=== PATIENT | female | born 1950 | race Caucasian/White ===

== ENCOUNTER 2025-03-04 12:13 | Inpatient (IN) | payer MEDICARE, SELFPAY ==
[2025-03-04] VITALS (21 sets, daily range): BP systolic 150–231; BP diastolic 70–120; PULSE 93–126; RESP 17–40; TEMP 35.9–37.2; O2SAT 85–98; BMI 27.1
--- NOTE | 2025-03-04 12:32 | DI.RAD.S_ITS ---
PROCEDURE: XR CHEST 1V INDICATIONS: shortness of breath, dyspnea TECHNIQUE: One view of the chest was acquired. COMPARISON: None. FINDINGS: Surgical changes and devices: None. Lungs and pleura: Lungs are clear. No pleural effusions or pneumothorax. Mediastinum: Mediastinal contours appear normal. Heart size is normal. Bones and chest wall: No suspicious bony lesions. Overlying soft tissues appear unremarkable. IMPRESSION: No acute cardiopulmonary abnormality is seen. Dictated by: Eric Pelayo M.D. on 03/04/2025 at 12:04 Approved by: Eric Pelayo M.D. on 03/04/2025 at 12:04
--- NOTE | 2025-03-04 12:33 | ED.SOB ---
HPI - SOB/Dyspnea General Chief Complaint: Shortness of Breath/Dyspnea Stated Complaint: sob Time Seen by Provider: 03/04/25 12:25 Source: patient Mode of arrival: Ambulatory Limitations: no limitations History of Present Illness HPI Narrative: This is a 74-year-old female with history asthma who got back from [place] a week ago presents with increasing shortness of breath and a nonproductive cough. Upon entering room the patient has audible wheezing. Patient is able to speak in full sentences patient denied any orthopnea or pedal edema patient says she did have an episode of substernal chest pressure while in [place]. There is no fevers no chills in the emergency room patient is able to speak in full sentence but appears to be in mild respiratory distress. Related Data Home Medications ?Medication ?Instructions ?Recorded ?Confirmed [STATIN] ##0 04/09/08 [THYROID MED] ##0 04/09/08 Allergies Allergy/AdvReac Type Severity Reaction Status Date / Time Penicillins Allergy Verified 03/04/25 12:27 Review of Systems Review of Systems ROS Unobtainable: Unobtainable due to medical condition Patient History Social History Smoking Status: Former smoker Smoking Status: Former smoker Exam Narrative Exam Narrative: GENERAL: [] year old patient appears stated age. Well-developed patient, in mild distress. HEAD: Atraumatic. Normocephalic. EYES: Pupils equal round and reactive. Extraocular motions intact. No scleral icterus. No injection or drainage. ENT: Nose without bleeding, purulent drainage. Throat without erythema, tonsillar hypertrophy or exudate. Airway patent. NECK: Trachea midline. Non tender CARDIOVASCULAR: Regular rate and rhythm without murmurs, gallops, or rubs. RESPIRATORY: Patient with audible wheezes mild respiratory distress GASTROINTESTINAL: Abdomen soft, non-tender, nondistended. EXTREMITIES: No edema or joint tenderness. BACK: Nontender without deformity or crepitance. No flank tenderness. NEURO: AOx3. SKIN: No rash or erythema of visible areas Initial Vital Signs Initial Vital Signs: Vital Signs Pulse Rate 126 H 03/04/25 12:18 Respiratory Rate 35 H 03/04/25 12:18 Blood Pressure 231/120 H 03/04/25 12:18 Pulse Oximetry 93 03/04/25 12:18 Course Orders Ordered: ED Orders 03/04/25 12:20 Complete Blood Count AUTO DIFF Stat Comprehensive Metabolic Panel Stat Covid-19 + FLU A/B + RSV - PCR Stat D Dimer Stat Lactate (Lactic Acid) Stat Magnesium Stat NT-proBNP (BNP-Adult 18+) Stat PTT Partial Thromboplastin Jose Stat Procalcitonin Stat Prothrombin Time INR Stat Troponin I Stat 03/04/25 12:31 Arterial Blood Gas STAT EKG-12 Lead Stat RT Consult Eval and Treat NOW 03/04/25 12:32 XR chest 1V Stat 03/04/25 13:16 CT angio chest PE protocol Stat 03/04/25 13:20 Blood Culture Stat 03/04/25 14:38 ABG [Arterial Blood Gas] STAT Magnesium Sulfate (Magnesium Sulfate) 4 gm in 100 mls @ 25 mls/hr IV NOW ONE Stop: 03/04/25 16:52 Last Admin: 03/04/25 13:02 Dose: 25 mls/hr Documented By: TEJA Co-signed By: DIANA Levofloxacin (Levaquin) 500 mg in 100 mls @ 100 mls/hr IV NOW ONE Stop: 03/04/25 16:58 Discontinued Medications Albuterol (Albuterol 2.5 Mg/3 Ml Neb (Adult)) 2.5 mg INH NOW ONE Stop: 03/04/25 14:15 Last Admin: 03/04/25 14:16 Dose: 2.5 mg Documented By: SYDNI Albuterol/Ipratropium (Albuterol/Ipratropium 3 Ml Ampul) 3 ml INH NOW ONE Stop: 03/04/25 12:32 Last Admin: 03/04/25 12:35 Dose: 3 ml Documented By: PRUDENCIO Albuterol/Ipratropium (Albuterol/Ipratropium 3 Ml Ampul) 3 ml INH NOW ONE Stop: 03/04/25 16:00 Dexamethasone (Dexamethasone 10 Mg/Ml Vial) 10 mg IV NOW ONE Stop: 03/04/25 12:32 Last Admin: 03/04/25 12:48 Dose: 10 mg Documented By: TEJA Sodium Chloride (Normal Saline 0.9%) 1,000 mls @ 999 mls/hr IV BOLUS ONE Stop: 03/04/25 13:31 Last Infusion: 03/04/25 14:02 Dose: Infused Documented By: Admin: 03/04/25 12:48 Dose: 999 mls/hr Documented By: TEJA Vital Signs Vital signs: Vital Signs - 8 hr 03/04/25 12:18 03/04/25 12:18 03/04/25 12:19 Temperature Pulse Rate 126 H 115 H Respiratory Rate 35 H 30 H Blood Pressure 231/120 H Pulse Oximetry 93 96 Oxygen Delivery Method Oxygen Flow Rate 03/04/25 12:19 03/04/25 12:24 03/04/25 12:30 Temperature 98.9 F Pulse Rate 126 H 108 H Respiratory Rate 40 H 29 H Blood Pressure 212/104 H 212/104 H Pulse Oximetry 93 94 Oxygen Delivery Method Room Air Oxygen Flow Rate 03/04/25 12:30 03/04/25 13:00 03/04/25 13:06 Temperature Pulse Rate 112 H Respiratory Rate 25 H Blood Pressure 184/86 H 205/90 H Pulse Oximetry 96 Oxygen Delivery Method Oxygen Flow Rate 03/04/25 13:06 03/04/25 13:30 03/04/25 14:00 Temperature Pulse Rate 111 H 107 H 108 H Respiratory Rate 30 H Blood Pressure Pulse Oximetry 94 96 94 Oxygen Delivery Method Oxygen Flow Rate 03/04/25 14:04 03/04/25 14:04 03/04/25 14:20 Temperature Pulse Rate 106 H Respiratory Rate 30 H Blood Pressure 215/106 H Pulse Oximetry 93 85 L Oxygen Delivery Method Room Air Oxygen Flow Rate 03/04/25 14:25 03/04/25 14:30 03/04/25 14:30 Temperature Pulse Rate 107 H Respiratory Rate Blood Pressure 189/92 H Pulse Oximetry 96 95 Oxygen Delivery Method Room Air Oxygen Flow Rate 1 03/04/25 15:00 03/04/25 15:00 Temperature Pulse Rate 104 H Respiratory Rate 21 Blood Pressure 194/100 H Pulse Oximetry 96 Oxygen Delivery Method Oxygen Flow Rate MDM - SOB/Dyspnea Lab Data 03/04/25 12:20 03/04/25 12:20 Labs: Lab Results 03/04/25 03/04/25 Range/Units 12:20 13:18 WBC 12.1 H (4.5-11.0) X10^3/uL RBC 4.04 (4.0-5.2) X10^6/uL Hgb 13.3 (12.0-16.0) g/dL Hct 37.5 (36-46) % MCV 92.9 (80-100) fL MCH 32.9 (26-34) PG MCHC 35.4 (30-36) % RDW 12.9 (11.6-14.8) % Plt Count 310 (150-400) X10^3/uL Neut % (Auto) 75.7 H (50-75) % Lymph % (Auto) 8.8 L (25-40) % [place] % (Auto) 10.3 (3-14) % Eos % (Auto) 4.5 H (2-4) % Baso % (Auto) 0.7 (0-2) % Neut # (Auto) 9200 H (0687-6537) /uL Lymph # (Auto) 1100 (4780-6847) /uL [place] # (Auto) 1200 H (0-900) /uL Eos # (Auto) 600 H (0-450) /uL Baso # (Auto) 100 (0-100) /uL PT 10.8 (9.4-12.5) SECONDS INR 1.0 (0.9-1.3) APTT 31 (25.1-36.5) SECONDS D-Dimer 264 (<500) ng/ml ABG Sample Site Right radial ABG pH 7.41 (7.35-7.45) ABG pCO2 34.7 L (35-45) mmHg ABG pO2 65 L (80-100) mmHg ABG HCO3 22 L (23-27) mmol/L ABG Total CO2 21 L (23-27) mmol/L ABG O2 Saturation 93 L (95-100) % ABG Base Excess -2.2 L (-2-3) mmol/L [place] Test Yes, passed VBG pH Cancelled VBG pCO2 Cancelled VBG pO2 Cancelled VBG HCO3 Cancelled VBG Total CO2 Cancelled VBG O2 Saturation Cancelled VBG Base Excess Cancelled FiO2 % Cancelled Sodium 119 L* (137-145) mmol/L Potassium 3.6 (3.4-5.1) mmol/L Chloride 85 L (98-107) mmol/L Carbon Dioxide 23 (22-32) mmol/L BUN 9 (7-17) mg/dL Creatinine 0.56 (0.52-1.04) mg/dL Estimated GFR > 60 (>60) mL/min BUN/Creatinine Ratio 16.1 (6-22) Glucose 117 H (70-99) mg/dL Lactate 1.0 (0.7-2.1) mmol/L Calcium 9.0 (8.4-10.2) mg/dL Magnesium 1.3 L (1.6-2.3) mg/dL Total Bilirubin 0.9 (0.2-1.3) mg/dL AST 50 H (14-36) IU/L ALT 26 (<35) IU/L Alkaline Phosphatase 83 (38-126) U/L Troponin I < 0.012 (0.01-0.034) ng/mL NT-Pro-B Natriuret Pep 641 H (<450) pg/mL Total Protein 8.0 (6.3-8.2) g/dL Albumin 4.9 (3.5-5.0) g/dL Globulin 3.1 (1.7-4.1) g/dL Albumin/Globulin Ratio 1.6 (1.0-2.8) Procalcitonin 0.054 (<0.5) ng/mL SARS-CoV-2 (PCR) Negative (Negative) Influenza A (RT-PCR) Flu a negative (NEGATIVE) Influenza B (RT-PCR) Flu b negative (NEGATIVE) RSV (PCR) Negative (Negative) MDM Narrative Medical decision making narrative: Patient had a 12 lead EKG reveals sinus tachycardia 116 beats per minute normal axis no blocks nonspecific STT wave changes patient had chest x-ray read by the radiologist negative patient's CTA of the chest read by the radiologist as negative for pulmonary embolism however a revealed multifocal pneumonia of both lungs. Patient's arterial blood gas on 1 L which revealed respiratory alkalosis with hypoxemia. Patient had a CBC unremarkable white count 12.1 chemistry was unremarkable magnesium was low at 1.3 lactic acid normal D-dimer was negative BNP was 641 troponin was negative. In the emergency room patient initially received a DuoNeb treatment as well as IV dexamethasone. When I got the magnesium level I ordered 4 g of IV magnesium on the patient. When I get back the results to the CT I ordered another DuoNeb as well as IV levofloxacin. Patient has multifocal pneumonia she has not been hospitalized recently she does not meet sepsis criteria and that is why I did not add the vancomycin at this point however the patient is hypomagnesemic she is still hypoxic and she still has not broken so I feel the patient should be admitted for further evaluation and treatment I will speak to the hospitalist to admit the patient differential diagnosis PE pneumonia CHF Discharge Plan Departure Patient Disposition: Admitted As Inpatient Clinical Impression: Multifocal pneumonia, Hypomagnesemia
[2025-03-04] MEDS: ALBUTEROL/IPRATROPIUM 3 ML AMPUL INH ×2 (12:35→16:19)
[2025-03-04 12:38] LABS: Add Manual Diff / Slide Review NO; Hematocrit 37.5 % (36-46); Hemoglobin 13.3 g/dL (12.0-16.0); Lymphocytes Absolute Auto 1100 /uL (1100-4500); Mean Corpuscular HGB Conc 35.4 % (30-36); Mean Corpuscular Hemoglobin 32.9 PG (26-34); Mean Corpuscular Volume 92.9 fL (80-100); Platelet Count 310 X10^3/uL (150-400)
[2025-03-04 12:41] LABS: INR 1.0 (0.9-1.3); Prothrombin Time 10.8 SECONDS (9.4-12.5)
[2025-03-04 12:43] LABS: PTT Partial Thromboplastin Tim 31 SECONDS (25.1-36.5)
[2025-03-04 12:45] LABS: Lactate (Lactic Acid) 1.0 mmol/L (0.7-2.1)
[2025-03-04 12:46] LABS: Magnesium 1.3 mg/dL (1.6-2.3)
[2025-03-04 12:47] LABS: Alanine Aminotransferase 26 IU/L (<35); Albumin 4.9 g/dL (3.5-5.0); Albumin Globulin Ratio 1.6 (1.0-2.8); Alkaline Phosphatase 83 U/L (38-126); Blood Urea Nitrogen 9 mg/dL (7-17); Calcium 9.0 mg/dL (8.4-10.2); Carbon Dioxide 23 mmol/L (22-32); Chloride 85 mmol/L (98-107); Estimated Glomerular Filt Rate > 60 mL/min (>60); Globulin 3.1 g/dL (1.7-4.1); Glucose 117 mg/dL (70-99); Potassium 3.6 mmol/L (3.4-5.1); Sodium 119 mmol/L (137-145); Total Protein 8.0 g/dL (6.3-8.2)
[2025-03-04] MEDS: SODIUM CHLORIDE 0.9% 1,000 ML 999 ML IV (12:48)
[2025-03-04 12:49] LABS: HEMOLYSIS < 15 (0-50)
[2025-03-04 12:58] LABS: NT-proBNP (BNP-Adult 18+) 641 pg/mL (<450); Troponin I < 0.012 ng/mL (0.01-0.034)
[2025-03-04 13:02] LABS: Procalcitonin 0.054 ng/mL (<0.5)
[2025-03-04] MEDS: MAGNESIUM SULFATE 4 GM/100 ML PIGGYBACK IV (13:02)
--- NOTE | 2025-03-04 13:02 | EKG_ITS ---
[facility] [address] [address] Test Date: 2025-03-04 Pat Name: Alem Trinidad Department: [facility] Room: Gender: Female Machine Biller: JOSE : 1950 Requested By: Order Number: [id number] Reading MD: Marin Reynoso MD Measurements Intervals [place] Rate: 116 P: 60 MN: 128 QRS: 24 QRSD: 72 T: 61 QT: 344 QTc: 478 Interpretive Statements Sinus tachycardia with premature atrial complexes Electronically Signed On 03-04-2025 15:39:01 PST by Marin Reynoso MD
--- NOTE | 2025-03-04 13:16 | DI.CT.S_ITS ---
PROCEDURE: CT ANGIO CHEST PE PROTOCOL INDICATIONS: hypoxemia r/o pulm embolism TECHNIQUE: After the administration of intravenous contrast, 2 mm thick sections acquired from the pulmonary apices to the posterior costophrenic angles. 3-dimensional maximum intensity projection (MIP) coronal and sagittal reformats were then acquired through the thorax. For radiation dose reduction, the following was used: automated exposure control, adjustment of mA and/or kV according to patient size. COMPARISON: None. FINDINGS: Image quality: Diagnostic. Pulmonary arteries: Pulmonary arteries are normal in size, and demonstrate no intraluminal filling defects to suggest central pulmonary embolism. Lower Neck: No enlarged lymph nodes. Thyroid: No thyroid nodules which require sonographic follow up, per consensus guidelines. Axillae: No enlarged lymph nodes. Chest Wall: Unremarkable. Bones: Unremarkable. Lungs and Pleura: No pneumothorax or pleural effusions. Multifocal bronchial wall thickening and bronchial opacities within the bilateral intersegmental and lower lobe segmental pulmonary arteries with patchy ground-glass opacities in the lingula and subpleural left greater than right lower lobes. No consolidation. Heart: Heart size is normal. Calcifications of the mitral valve annulus and aortic valve annulus. No pericardial effusion. Thoracic Vessels: No aortic aneurysm. Mediastinum and Maria [place]upe: Mildly prominent but nonenlarged by CT size criteria mediastinal nodes. Esophagus: No wall thickening. No hiatal hernia. Upper Abdomen: Visualized upper abdomen solid organs and bowel loops appear normal. IMPRESSION: No pulmonary embolus. Findings concerning for multifocal pneumonia with areas of bronchial wall thickening and scattered likely mucous impaction throughout the bilateral mid to lower lobes, correlate for infectious bronchitis. Dictated by: Eric Pelayo M.D. on 03/04/2025 at 14:14 Approved by: Eric Pelayo M.D. on 03/04/2025 at 14:17
[2025-03-04 13:18] LABS: Influenza A - CEPHEID Flu A NEGATIVE (NEGATIVE); Influenza B - CEPHEID Flu B NEGATIVE (NEGATIVE)
[2025-03-04 13:19] LABS: COVID-19 CEPHEID 4-PLEX PCR Negative (Negative)
[2025-03-04] MEDS: ALBUTEROL 2.5 MG/3 ML NEB (ADULT) INH ×2 (14:16→21:04)
[2025-03-04 15:02] LABS: HCO3 ABG 22 mmol/L (23-27); PCO2 ABG 34.7 mmHg (35-45); PO2 ABG 65 mmHg (80-100); TCO2 ABG 21 mmol/L (23-27)
[2025-03-04 15:03] LABS: Allen Test for ABG Passed? Yes, Passed; Blood Gas Collection Site Right Radial; Oxygen Saturation ABG 93 % (95-100)
[2025-03-04] MEDS: levoFLOXacin 500 MG/100 ML PIGGYBACK 100 MG IV (16:04)
--- NOTE | 2025-03-04 17:09 | PM.HP.1 ---
History of Present Illness History of Present Illness Date Patient Seen: 03/04/25 Time Patient Seen: 17:19 Chief complaint: sob Narrative: 74-year-old female with several months of persistent and oscillating cough as well as wheezing. She was no history of pulmonary disease including asthma, or COPD. No history of tobacco use. She was had progressive wheezing. She recently returned from a trip to [place] where she was traveling around the country for 3 weeks. She entered that trip with a cough and has essentially been ill the entire trip with persistent coughing and wheezing. She was started azithromycin at the beginning that trip and recently was started on Augmentin. She was not been started on or treated with steroids to this point. She has been using bronchodilators at home and these do help to a degree. No fevers, or chills. No anorexia. ROS: All else reviewed and otherwise unremarkable except as noted in the history and physical. O: VSS NAD, alert and oriented, fluent speech, calm. Normocephalic skull, EOMI, anicteric sclera, symmetric pupils. Oropharynx unremarkable, no droop. Neck supple, midline trachea, no adenopathy. Lungs with diffuse inspiratory and expiratory wheezing, normal rate and effort. Heart regular, no murmur gallop or rub. Abdomen is soft, non distended and non tender. Extremities are free of edema. Skin is free of rash or lesions. Joints are not swollen or deformed. Judgment appears to be normal. IMAGING: CXR: No pulmonary embolus. Chest CTA: No acute cardiopulmonary abnormality is seen. A/P: 1. Possible pneumonia, active. 2. Severe reactive airways secondary to infection, active. 3. Hypovolemic hyponatremia, active. 4. Hypothyroidism, stable. 5. HLD, stable. PLAN: -Levaquin given her penicillin allergy. -methylprednisolone trial at 60 mg IV q.6 hours. -normal saline at 100 an hour, monitor sodium. Likely solid deficiency from being ill. -bronchodilators Q 2 hours as needed, albuterol. Anticipate 2 nights in the hospital, supports inpatient status. Full resuscitation. is proxy decision maker. [facility] Social History Smoking Status: Former smoker Meds Home Medications and Allergies Home Medications ?Medication ?Instructions ?Recorded ?Confirmed ?Type [STATIN] ##0 04/09/08 History [THYROID MED] ##0 04/09/08 History Allergies Allergy/AdvReac Type Severity Reaction Status Date / Time Penicillins Allergy Verified 03/04/25 12:27 Exam Vital Signs (past 8 hours): - 03/04/25 12:18 03/04/25 12:18 03/04/25 12:19 Temperature Pulse Rate 126 H 115 H Respiratory Rate 35 H 30 H Blood Pressure 231/120 H Pulse Oximetry 93 96 Oxygen Delivery Method Oxygen Flow Rate 03/04/25 12:19 03/04/25 12:24 03/04/25 12:30 Temperature 98.9 F Pulse Rate 126 H 108 H Respiratory Rate 40 H 29 H Blood Pressure 212/104 H 212/104 H Pulse Oximetry 93 94 Oxygen Delivery Method Room Air Oxygen Flow Rate 03/04/25 12:30 03/04/25 13:00 03/04/25 13:06 Temperature Pulse Rate 112 H Respiratory Rate 25 H Blood Pressure 184/86 H 205/90 H Pulse Oximetry 96 Oxygen Delivery Method Oxygen Flow Rate 03/04/25 13:06 03/04/25 13:30 03/04/25 14:00 Temperature Pulse Rate 111 H 107 H 108 H Respiratory Rate 30 H Blood Pressure Pulse Oximetry 94 96 94 Oxygen Delivery Method Oxygen Flow Rate 03/04/25 14:04 03/04/25 14:04 03/04/25 14:20 Temperature Pulse Rate 106 H Respiratory Rate 30 H Blood Pressure 215/106 H Pulse Oximetry 93 85 L Oxygen Delivery Method Room Air Oxygen Flow Rate 03/04/25 14:25 03/04/25 14:30 03/04/25 14:30 Temperature Pulse Rate 107 H Respiratory Rate Blood Pressure 189/92 H Pulse Oximetry 96 95 Oxygen Delivery Method Room Air Oxygen Flow Rate 1 03/04/25 15:00 03/04/25 15:00 03/04/25 15:30 Temperature Pulse Rate 104 H 97 H Respiratory Rate 21 33 H Blood Pressure 194/100 H Pulse Oximetry 96 94 Oxygen Delivery Method Oxygen Flow Rate 03/04/25 15:31 03/04/25 15:31 03/04/25 16:00 Temperature Pulse Rate 103 H 93 H Respiratory Rate 33 H 24 Blood Pressure 185/82 H Pulse Oximetry 95 94 Oxygen Delivery Method Oxygen Flow Rate 03/04/25 16:13 03/04/25 16:13 03/04/25 16:30 Temperature Pulse Rate 101 H Respiratory Rate 24 Blood Pressure 181/95 H 180/81 H Pulse Oximetry 97 Oxygen Delivery Method Oxygen Flow Rate 03/04/25 16:30 Temperature Pulse Rate 101 H Respiratory Rate 28 H Blood Pressure Pulse Oximetry 96 Oxygen Delivery Method Oxygen Flow Rate Oxygen Delivery Method Room Air Oxygen Flow Rate 1 Objective Labs 03/04/25 12:20 03/04/25 12:20 Labs: Laboratory Results - last 24 hr 03/04/25 03/04/25 12:20 13:18 WBC 12.1 H RBC 4.04 Hgb 13.3 Hct 37.5 MCV 92.9 MCH 32.9 MCHC 35.4 RDW 12.9 Plt Count 310 Neut % (Auto) 75.7 H Lymph % (Auto) 8.8 L [place] % (Auto) 10.3 Eos % (Auto) 4.5 H Baso % (Auto) 0.7 Neut # (Auto) 9200 H Lymph # (Auto) 1100 [place] # (Auto) 1200 H Eos # (Auto) 600 H Baso # (Auto) 100 PT 10.8 INR 1.0 APTT 31 D-Dimer 264 ABG Sample Site Right radial ABG pH 7.41 ABG pCO2 34.7 L ABG pO2 65 L ABG HCO3 22 L ABG Total CO2 21 L ABG O2 Saturation 93 L ABG Base Excess -2.2 L [place] Test Yes, passed VBG pH Cancelled VBG pCO2 Cancelled VBG pO2 Cancelled VBG HCO3 Cancelled VBG Total CO2 Cancelled VBG O2 Saturation Cancelled VBG Base Excess Cancelled FiO2 % Cancelled Sodium 119 L* Potassium 3.6 Chloride 85 L Carbon Dioxide 23 BUN 9 Creatinine 0.56 Estimated GFR > 60 BUN/Creatinine Ratio 16.1 Glucose 117 H Lactate 1.0 Calcium 9.0 Magnesium 1.3 L Total Bilirubin 0.9 AST 50 H ALT 26 Alkaline Phosphatase 83 Troponin I < 0.012 NT-Pro-B Natriuret Pep 641 H Total Protein 8.0 Albumin 4.9 Globulin 3.1 Albumin/Globulin Ratio 1.6 Procalcitonin 0.054 SARS-CoV-2 (PCR) Negative Influenza A (RT-PCR) Flu a negative Influenza B (RT-PCR) Flu b negative RSV (PCR) Negative Assessment & Plan Time-Based Coding :: [TOTAL MINUTES] spent with patient and on the chart (including review of chart, obtaining history, exam, reviewing outside data, placing orders, documenting exam and treatment plan, and counseling patient) on [DATE].
[2025-03-04] MEDS: SODIUM CHLORIDE 0.9% 1,000 ML 100 ML IV (17:46)
[2025-03-04] MEDS: methylPREDNISolone succ 125 MG/2 ML VIAL 60 MG IV ×2 (18:05→23:53)
[2025-03-04] MEDS: ACETAMINOPHEN 325 MG TABLET 650 MG PO (18:05)
[2025-03-05] VITALS (15 sets, daily range): BP systolic 145–177; BP diastolic 70–94; PULSE 99–111; RESP 16–24; TEMP 35.6–36.3; O2SAT 87–99
[2025-03-05 01:04] LABS: Blood Urea Nitrogen 9 mg/dL (7-17); Calcium 8.4 mg/dL (8.4-10.2); Carbon Dioxide 21 mmol/L (22-32); Chloride 88 mmol/L (98-107); Estimated Glomerular Filt Rate > 60 mL/min (>60); Glucose 164 mg/dL (70-99); HEMOLYSIS < 15 (0-50); Potassium 3.6 mmol/L (3.4-5.1)
[2025-03-05 01:06] LABS: Sodium 119 mmol/L (137-145)
[2025-03-05] MEDS: ACETAMINOPHEN 325 MG TABLET 650 MG PO (03:44)
[2025-03-05] MEDS: SODIUM CHLORIDE 0.9% 1,000 ML 100 ML IV ×2 (04:15→17:35)
[2025-03-05] MEDS: ALBUTEROL 2.5 MG/3 ML NEB (ADULT) INH ×5 (04:17→19:39)
[2025-03-05] MEDS: methylPREDNISolone succ 125 MG/2 ML VIAL 60 MG IV ×3 (05:31→18:54)
--- NOTE | 2025-03-05 06:10 | PC.NURSE ---
Pt on 2L NC. Sats 91-99%. Expiratory wheezes. Notified RT who gave her a treatment. Still sounds wheezy
[2025-03-05 06:26] LABS: Add Manual Diff / Slide Review NO; Hematocrit 34.7 % (36-46); Hemoglobin 12.4 g/dL (12.0-16.0); Lymphocytes Absolute Auto 600 /uL (1100-4500); Mean Corpuscular HGB Conc 35.7 % (30-36); Mean Corpuscular Hemoglobin 33.4 PG (26-34); Mean Corpuscular Volume 93.5 fL (80-100); Platelet Count 293 X10^3/uL (150-400)
[2025-03-05 06:36] LABS: Blood Urea Nitrogen 8 mg/dL (7-17); Calcium 8.4 mg/dL (8.4-10.2); Carbon Dioxide 22 mmol/L (22-32); Chloride 92 mmol/L (98-107); Estimated Glomerular Filt Rate > 60 mL/min (>60); Glucose 170 mg/dL (70-99); HEMOLYSIS < 15 (0-50); Potassium 3.9 mmol/L (3.4-5.1); Sodium 122 mmol/L (137-145)
--- NOTE | 2025-03-05 07:56 | PM.PN.1 ---
Subjective Subjective Date Patient Seen: 03/05/25 Interval history: This is a 74-year-old female with several months of persistent and oscillating cough as well as wheezing. She was no history of pulmonary disease including asthma, or COPD. No history of tobacco use. She was had progressive wheezing. She recently returned from a trip to [place] where she was traveling around the country for 3 weeks. She entered that trip with a cough and has essentially been ill the entire trip with persistent coughing and wheezing. She was started on azithromycin at the beginning that trip and recently was started on Augmentin. She was not been started on or treated with steroids to this point. She has been using bronchodilators at home and these do help to a degree. No fevers, or chills. No anorexia. 03/05: She mentions that she has been feeling foggy and stupid? for the last 4 months. She mentions the trip to [place]. 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 The magnesium level has risen from 1.3 up to 2.0. The sodium level is up to 122. The blood pressure is 177/92. She has been unable to get started on her PT and OT due to her dyspnea so far. O: VSS NAD, alert and oriented, fluent speech, distracted and anxious. Normocephalic skull Neck supple, midline trachea, no adenopathy. Lungs with diffuse inspiratory and expiratory wheezing, normal rate and effort. Heart regular, no murmur gallop or rub. Extremities are free of edema. Skin is free of rash or lesions. Joints are not swollen or deformed. Judgment appears to be normal. IMAGING: CXR: No pulmonary embolus. Chest CTA: No acute cardiopulmonary abnormality is seen. A/P: 1. Possible pneumonia, active. 2. Severe reactive airways secondary to infection, active. 3. Hypovolemic hyponatremia, active. 4. Hypothyroidism, stable. 5. HLD, stable. 6. Hyponatremia 7. Hypomagnesemia PLAN: -Levaquin (PCN allergy) -methylprednisolone 60 mg IV q.6 hours. -normal saline at 100 an hour, monitor sodium. Likely solid deficiency from being ill. -Mg supplemented and normalized -bronchodilators Q 2 hours as needed, albuterol. Full resuscitation. is proxy decision maker. Exam Vital Signs (past 8 hours): - 03/05/25 00:00 03/05/25 00:00 03/05/25 01:00 Temperature 97.3 F L Pulse Rate 111 H Respiratory Rate 24 Blood Pressure 171/94 H Pulse Oximetry 95 95 91 Oxygen Delivery Method Oxygen Flow Rate 1.5 2 2 Fraction of Inspired Oxygen 03/05/25 02:45 03/05/25 02:50 03/05/25 03:47 Temperature 97.2 F L Pulse Rate 107 H Respiratory Rate 20 Blood Pressure 177/92 H Pulse Oximetry 87 L 94 94 Oxygen Delivery Method Oxygen Flow Rate 2 2 Fraction of Inspired Oxygen 03/05/25 04:17 03/05/25 05:00 03/05/25 05:55 Temperature Pulse Rate 99 H Respiratory Rate 22 Blood Pressure Pulse Oximetry 96 99 97 Oxygen Delivery Method Nasal Cannula Oxygen Flow Rate 2 2 2 Fraction of Inspired Oxygen 28 Fraction of Inspired Oxygen 28 SaO2/FiO2 Ratio 342 Oxygen Delivery Method Nasal Cannula Oxygen Flow Rate 2 Objective Labs 03/05/25 06:10 03/05/25 06:10 Labs: Laboratory Results - last 24 hr 03/04/25 03/04/25 03/05/25 12:20 13:18 00:15 WBC 12.1 H RBC 4.04 Hgb 13.3 Hct 37.5 MCV 92.9 MCH 32.9 MCHC 35.4 RDW 12.9 Plt Count 310 Neut % (Auto) 75.7 H Lymph % (Auto) 8.8 L [place] % (Auto) 10.3 Eos % (Auto) 4.5 H Baso % (Auto) 0.7 Neut # (Auto) 9200 H Lymph # (Auto) 1100 [place] # (Auto) 1200 H Eos # (Auto) 600 H Baso # (Auto) 100 PT 10.8 INR 1.0 APTT 31 D-Dimer 264 ABG Sample Site Right radial ABG pH 7.41 ABG pCO2 34.7 L ABG pO2 65 L ABG HCO3 22 L ABG Total CO2 21 L ABG O2 Saturation 93 L ABG Base Excess -2.2 L [place] Test Yes, passed VBG pH Cancelled VBG pCO2 Cancelled VBG pO2 Cancelled VBG HCO3 Cancelled VBG Total CO2 Cancelled VBG O2 Saturation Cancelled VBG Base Excess Cancelled FiO2 % Cancelled Sodium 119 L* 119 L* Potassium 3.6 3.6 Chloride 85 L 88 L Carbon Dioxide 23 21 L BUN 9 9 Creatinine 0.56 0.56 Estimated GFR > 60 > 60 BUN/Creatinine Ratio 16.1 16.1 Glucose 117 H 164 H Lactate 1.0 Calcium 9.0 8.4 Magnesium 1.3 L Total Bilirubin 0.9 AST 50 H ALT 26 Alkaline Phosphatase 83 Troponin I < 0.012 NT-Pro-B Natriuret Pep 641 H Total Protein 8.0 Albumin 4.9 Globulin 3.1 Albumin/Globulin Ratio 1.6 Procalcitonin 0.054 SARS-CoV-2 (PCR) Negative Influenza A (RT-PCR) Flu a negative Influenza B (RT-PCR) Flu b negative RSV (PCR) Negative 03/05/25 06:10 WBC 6.3 RBC 3.71 L Hgb 12.4 Hct 34.7 L MCV 93.5 MCH 33.4 MCHC 35.7 RDW 12.9 Plt Count 293 Neut % (Auto) 86.9 H Lymph % (Auto) 9.8 L [place] % (Auto) 3.1 Eos % (Auto) 0.0 L Baso % (Auto) 0.2 Neut # (Auto) 5500 Lymph # (Auto) 600 L [place] # (Auto) 200 Eos # (Auto) 0 Baso # (Auto) 0 PT INR APTT D-Dimer ABG Sample Site ABG pH ABG pCO2 ABG pO2 ABG HCO3 ABG Total CO2 ABG O2 Saturation ABG Base Excess [place] Test VBG pH VBG pCO2 VBG pO2 VBG HCO3 VBG Total CO2 VBG O2 Saturation VBG Base Excess FiO2 % Sodium 122 L Potassium 3.9 Chloride 92 L Carbon Dioxide 22 BUN 8 Creatinine 0.56 Estimated GFR > 60 BUN/Creatinine Ratio 14.3 Glucose 170 H Lactate Calcium 8.4 Magnesium Total Bilirubin AST ALT Alkaline Phosphatase Troponin I NT-Pro-B Natriuret Pep Total Protein Albumin Globulin Albumin/Globulin Ratio Procalcitonin SARS-CoV-2 (PCR) Influenza A (RT-PCR) Influenza B (RT-PCR) RSV (PCR) PFSH Social History household members: significant other Smoking Status: Former smoker Assessment & Plan Time-Based Coding :: [TOTAL MINUTES] spent with patient and on the chart (including review of chart, obtaining history, exam, reviewing outside data, placing orders, documenting exam and treatment plan, and counseling patient) on [DATE].
[2025-03-05 08:26] LABS: Magnesium 2.0 mg/dL (1.6-2.3)
--- NOTE | 2025-03-05 14:41 | PC.NURSE ---
Pt in reasonably good spirits this AM. Continues with constant, audible inspiratory and expiratory wheezes, has frequent cough, pt states cough is somewhat productive of green sputum as of this afternoon. Continues on O2 at 2L nasal canulla. Ambulating to bathroom with minimal assist to coordinate tubing and lines. Pt voiding clear, yellow urine. Reports she's been having diarrhea after experiencing a few days of constipation and then taking 1 laxative dose. Sheets changed, lots of dried stool present and pt had one scant, loose BM in toilet. IV dressing changed after becoming saturated with blood, NS running at 100mL/hr. Pt up to chair. A&Ox4 but sometimes forgetful. Will continue to closely monitor.
--- NOTE | 2025-03-05 16:19 | CM.DANOTE ---
Patient is a 74 yo female who was admitted INPT Status on 03/04/25 for SOB/COPD. Pt has MCR for insurance and her PCP is not listed. EMR was reviewed. Per MD, pt recently in [place] for a trip for a few weeks and has had ongoing wheezing and SOB and admitted for possible Pneumonia and new COPD and currently on 2LO2 and does not have oxygen at baseline. MD anticipates pt to be here another couple to few days and may order PT tomorrow if pt still below baseline but not appropriate for PT today due to significant SOB. Due to triage needs, no bedside assessment completed yet today. Pt has no hx of prior admissions at [facility] and unclear if pt lives locally or [place] based on her home address. Plan: SW to follow closely for possible need for PT eval and to confirm pt's home situation and supports to determine any discharge planning needs. JADYN Ramos Discharge Planning/Care Management CM Discharge Assessment Start: 03/04/25 16:15 Freq: Status: Active Protocol: Document 03/05/25 16:17 BF (Rec: 03/05/25 16:18 BF [id number]) Discharge Planning Assessment Assigned Discharge JADYN Sullivan [employer] Worker Provider unknown Insurance Medicare Advance Directives? No Advance Directives No on File History Provided By Patient,Medical Record Has Patient been No admitted in last 30 days? Prior Living House Arrangements Household Members significant other Type of Drives own vehicle transporation used prior to admit Independent with ADL Yes 's Is patient alert and Yes oriented? Caregiver for No Another Barriers to No Discharge Discharge Plan Home Referrals Initiated None needed Review Status In Process Please Provide Date 03/05/25 Initial DC Assessment Was Performed Next Review Type Continued Stay Review
[2025-03-05] MEDS: BENZONATATE 100 MG CAPSULE PO (21:59)
[2025-03-05] MEDS: ZOLPIDEM 5 MG TABLET PO (21:59)
[2025-03-06] VITALS (9 sets, daily range): BP systolic 146–183; BP diastolic 72–93; PULSE 103–114; RESP 18–20; TEMP 36.1–36.5; O2SAT 93–98
[2025-03-06] MEDS: methylPREDNISolone succ 125 MG/2 ML VIAL 60 MG IV ×4 (00:19→18:16)
[2025-03-06 05:23] LABS: Add Manual Diff / Slide Review NO; Hematocrit 33.5 % (36-46); Hemoglobin 11.7 g/dL (12.0-16.0); Lymphocytes Absolute Auto 600 /uL (1100-4500); Mean Corpuscular HGB Conc 34.8 % (30-36); Mean Corpuscular Hemoglobin 33.2 PG (26-34); Mean Corpuscular Volume 95.3 fL (80-100); Platelet Count 288 X10^3/uL (150-400)
[2025-03-06 05:37] LABS: Blood Urea Nitrogen 13 mg/dL (7-17); Calcium 8.5 mg/dL (8.4-10.2); Carbon Dioxide 23 mmol/L (22-32); Chloride 94 mmol/L (98-107); Estimated Glomerular Filt Rate > 60 mL/min (>60); Glucose 144 mg/dL (70-99); HEMOLYSIS < 15 (0-50); Potassium 3.8 mmol/L (3.4-5.1); Sodium 124 mmol/L (137-145)
[2025-03-06 05:38] LABS: Magnesium 1.8 mg/dL (1.6-2.3)
[2025-03-06] MEDS: SODIUM CHLORIDE 0.9% 1,000 ML 100 ML IV ×2 (06:18→18:16)
--- NOTE | 2025-03-06 06:59 | P.PN_ITS ---
Subjective Subjective Date Patient Seen: 03/06/25 Interval history: This is a 74-year-old female with several months of persistent and oscillating cough as well as wheezing. She was no history of pulmonary disease including asthma, or COPD. No history of tobacco use. She was had progressive wheezing. She recently returned from a trip to [place] where she was traveling around the country for 3 weeks. She entered that trip with a cough and has essentially been ill the entire trip with persistent coughing and wheezing. She was started on azithromycin at the beginning that trip and recently was started on Augmentin. She was not been started on or treated with steroids to this point. She has been using bronchodilators at home and these do help to a degree. No fevers, or chills. No anorexia. 03/05: She mentions that she has been feeling foggy and stupid? for the last 4 months. She mentions the trip to [place]. She has not been to see a substitute teacher yet. The magnesium level has risen from 1.3 up to 2.0. The sodium level is up to 122. The blood pressure is 177/92. She has been unable to get started on her PT and OT due to her dyspnea so far. 03/06: She seems to be doing better and will be starting PT/OT. Sodium level continues to rise, now at 124. White blood count of 15.7 without any other signs of an acute infection/worsening? Magnesium level 1.8. Blood pressure running high. Losartan being resumed today. O: VSS NAD, alert and oriented, fluent speech, calmer today. Normocephalic skull Neck supple, midline trachea, no adenopathy. Lungs with diffuse inspiratory and expiratory wheezing, normal rate and effort. Heart regular, no murmur gallop or rub. Extremities are free of edema. Skin is free of rash or lesions. Joints are not swollen or deformed. Judgment appears to be normal. IMAGING: CXR: No pulmonary embolus. Chest CTA: No acute cardiopulmonary abnormality is seen. A/P: 1. Possible pneumonia, active. 2. Severe reactive airways secondary to infection, active. 3. Hypovolemic hyponatremia, active. 4. Hypothyroidism, stable. 5. HLD, stable. 6. Hyponatremia 7. Hypomagnesemia 8. HTN PLAN: -Levaquin (PCN allergy) -methylprednisolone 60 mg IV q.6 hours. (related to leukocytosis?) -normal saline at 100 an hour, monitor sodium. Likely solid deficiency from being ill. -Mg supplemented and normalized -bronchodilators Q 2 hours as needed, albuterol. -Losartan -PT/OT Home in 1-2 days Full resuscitation. is proxy decision maker. Exam Vital Signs (past 8 hours): - 03/06/25 00:00 03/06/25 04:00 Temperature 97.3 F L 97.1 F L Pulse Rate 107 H 110 H Respiratory Rate 20 20 Blood Pressure 146/79 H 179/80 H Pulse Oximetry 96 97 Oxygen Flow Rate 2 2 Fraction of Inspired Oxygen 28 SaO2/FiO2 Ratio 342 Oxygen Delivery Method Nasal Cannula Oxygen Flow Rate 2 Objective Labs 03/06/25 04:55 03/06/25 04:55 Labs: Laboratory Results - last 24 hr 03/05/25 03/06/25 06:10 04:55 WBC 15.7 H D RBC 3.52 L Hgb 11.7 L Hct 33.5 L MCV 95.3 MCH 33.2 MCHC 34.8 RDW 13.0 Plt Count 288 Neut % (Auto) 92.0 H Lymph % (Auto) 3.7 L [place] % (Auto) 4.1 Eos % (Auto) 0.0 L Baso % (Auto) 0.2 Neut # (Auto) 67885 H Lymph # (Auto) 600 L [place] # (Auto) 600 Eos # (Auto) 0 Baso # (Auto) 0 Sodium 124 L Potassium 3.8 Chloride 94 L Carbon Dioxide 23 BUN 13 Creatinine 0.70 Estimated GFR > 60 BUN/Creatinine Ratio 18.6 Glucose 144 H Calcium 8.5 Magnesium 2.0 1.8 PFSH Social History household members: significant other Smoking Status: Former smoker Assessment & Plan Time-Based Coding :: [TOTAL MINUTES] spent with patient and on the chart (including review of chart, obtaining history, exam, reviewing outside data, placing orders, documenting exam and treatment plan, and counseling patient) on [DATE].
[2025-03-06] MEDS: ALBUTEROL 2.5 MG/3 ML NEB (ADULT) INH ×3 (08:24→19:58)
[2025-03-06] MEDS: ATORVASTATIN 20 MG TABLET PO (08:45)
[2025-03-06] MEDS: LOSARTAN 50 MG TABLET PO (08:46)
--- NOTE | 2025-03-06 14:38 | OT.IPNOTE ---
Pt is independent in the room and states has no needs for ADL's and has a supportive boyfriend to assist her at home. Therefore discharge OT eval orders.
--- NOTE | 2025-03-06 16:40 | PT.IIE ---
Current Diagnoses Pneumonia, unspecified organism (03/04/25) Physical Therapy Inpatient Evaluation/Re-Eval M1 PT IP Prior Functional Status Start: 03/06/25 16:53 Freq: NEEDED Status: Active Protocol: Document 03/06/25 16:55 NW (Rec: 03/06/25 17:30 NW [id number]) Medical Review Prior Functional Status Medical History Yes Reviewed Mobility and Gait At baseline pt does not use any AD and has been having progressive decrease in activity tolerance over the last 4 months with shortness of breath and non- productive cough. Pt was just traveling in [place] and ambulating variable distances while taking rest breaks as needed. Prior Functional Pt has been having partner assist with maintaining the Level (Other details home as the tasks are too strenuous. Pt self selects to ) shower with a shower chair secondary to fatigue. Social History Household Members significant other Living Arrangements House Number of Floors ( One Floor Floors) Number of Stairs To 2 steps no railing present Enter/Railing? Home Environment Standard Height Toilet,Walk in Shower Home Equipment Shower Seat with Backrest,Grab Bars In Shower Additional Social No additional family in the area. Children live in [facility]. M2 PT-IP Current Condition Start: 03/06/25 16:53 Freq: NEEDED Status: Active Protocol: Document 03/06/25 16:55 NW (Rec: 03/06/25 17:30 NW [id number]) Physical Therapy Current Condition Current Condition Evaluation Date 03/06/25 Treatment Diagnosis pneumonia, weakness, reduced activity tolerance Onset Date 03/04/25 M3 PT-IP Subjective Start: 03/06/25 16:53 Freq: NEEDED Status: Active Protocol: Document 03/06/25 16:55 NW (Rec: 03/06/25 17:30 NW [id number]) Subjective Physical Therapy Visit Type Type Initial Evaluation Visit Start Time 16:05 Visit Stop Time 16:40 Notes 35 min Physical Therapy Visit Comments Patient Comments Pt has a scheduled cruise in 20 days. Patient Goals To return home. M4 PT-IP Mobility and Gait Start: 03/06/25 16:53 Freq: NEEDED Status: Active Protocol: Document 03/06/25 16:55 NW (Rec: 03/06/25 17:30 NW [id number]) PT-Bed Mobility Assessment Supine to Sit Supine to Sit Independent Sit to Supine Sit to Supine Independent PT-Transfer Assessment Sit to and From Stand Sit to and from Independent Stand Equipment Transfer Assistive None Device Transfers Transfer Destination Bed,Chair Transfer Technique Stand Step Pivot Transfer Ability Level of Assist Independent Comments Mobility Comments Good power production without use of UE to assist. Adequate eccentric control without dynamic valgus. Gait Assessment Gait Gait Assistance Standby Assistance Required: Distance (Feet) 100 Able to Maintain Yes Weight Bearing Status During Gait Assistive Devices Assistive Device None Factors Limiting Gait Function Factors Limiting Respiratory Distress Gait Function Comments Gait Comments Ambulated over two equal bouts with oxygen remaining > 92% when re-assessed. Pt has signs of dyspnea and wheezing. Cues for safety awareness with reduced activity tolerance. Stair Climbing Assessment Comments Stair Climbing DNT Comments PT-Balance Assessment Sitting Balance and Reactions Static Sitting Normal Balance Ability Dynamic Sitting Normal Balance Ability Standing Balance and Reactions Static Standing Normal Balance Ability Dynamic Standing Good Balance Ability Device Used none Functional Assessments Functional Tests 5 Times Sit to Stand 19 sec Other Functional Tests oxygen saturation decreased to 81% taking 3 minutes to Performed recover upon resting in seated position on RA. M5 PT-IP Objective Assessments Start: 03/06/25 16:53 Freq: NEEDED Status: Active Protocol: Document 03/06/25 16:55 NW (Rec: 03/06/25 17:30 NW [id number]) Orientation Orientation/Cognition Level of Alertness Alert Orientation Name,Age,Birthday,Month,Date,Year,Day of Week,Place, Situation Safety Awareness Understands Safety Issues Comments Pt demonstrates fluctuation with activity tolerance awareness. Gross Range of Motion Lower Extremity ROM Assessment Within Functional Limits Strength Lower Extremity Strength Assessment Within Functional Limits Coordination Assessment Gross Coordination Gross Coordination WNL Sensation Assessment Sensation Gross Sensation WNL M6 PT-IP Treatment Start: 03/06/25 16:53 Freq: NEEDED Status: Active Protocol: Document 03/06/25 16:55 NW (Rec: 03/06/25 17:30 NW [id number]) Physical Therapy Treatment Education Education Provided Safety Other Treatments Other Treatment Education on oxygen saturation with regards to Performed differing levels of exertion from ambulation to repeated sit to stand test. Encouraged to take rest breaks throughout session. M7 PT-IP Assessment and Plan Start: 03/06/25 16:53 Freq: NEEDED Status: Active Protocol: Document 03/06/25 16:55 NW (Rec: 03/06/25 17:30 NW [id number]) PT Summary Assessment and Plan Potential Rehabilitation Good Potential Status of Condition Stable at Evaluation Summary Impairments Gait,Activity Tolerance Progress Towards Progressing Toward Goals Goals Assessment Summary Alem is a 74 yr old female hospitalized due to pneumonia from progressive shortness of breath for the last 4 months. At baseline pt does not use an AD and ambulates with rest breaks as needed over the last 4 months. Pt has adequate strength to perform functional mobility over short duration. She is able to ambulate 100 ft over two equal bouts with 5 minute rest breaks between bouts without an AD at A while maintaining oxygen saturation > 90%. Upon 5 x STS assessment pt demonstrates dyspnea with wheezing and oxygen saturation levels in low 80s requiring 4 minutes to recover. Pt understands her limitations in activity tolerance and has a emt intermediate partner who assists with necessary home ADLs. Recommending home health upon discharge. Goals Gait Goal Standby Assistance Gait Distance 300 Other Goals Pt will navigate 2 stairs without use of handrail at stand by assist. Days to Meet Goals 2 Frequency of Treatment Frequency Of Once a Day Treatment Treatment Plan Physical Therapy Gait Training,Discharge Planning Treatment Plan Other Activity tolerance Recommendations and Next Treatment Focus Recommendations To Nursing Amount of Assist Independent Needed Discharge Recommendations PT Discharge Home Health Recommendations Transportation Needs Private Vehicle at Discharge - PT assist 1
--- NOTE | 2025-03-06 17:04 | CM.DPNOTE ---
DCP Continued: Reviewed EMR and team rounds for pt?s medical status. Per hospitalist, pending PT/OT recommendations and sodium levels but anticipating dc home in 1-2 days. Per OT, pt declined evaluation as she feels she does not need assistance with ADLs. At 1700, PT eval pending, following for recommendations. Plan: Anticipating discharge home with family in 1-2 days or when medically cleared. CM Team will continue to follow for coordination of discharge plans. SOCORRO Askew
[2025-03-06] MEDS: SIMETHICONE 80 MG TABLET PO ×2 (17:44→20:36)
[2025-03-06] MEDS: GABAPENTIN 300 MG CAPSULE PO (20:36)
[2025-03-06] MEDS: ZOLPIDEM 5 MG TABLET PO (20:51)
[2025-03-07] VITALS (9 sets, daily range): BP systolic 156–182; BP diastolic 67–96; PULSE 96–110; RESP 17–18; TEMP 35.8–36.3; O2SAT 94–97; BMI 27.1
[2025-03-07] MEDS: ALBUTEROL 2.5 MG/3 ML NEB (ADULT) INH ×4 (01:49→20:12)
[2025-03-07] MEDS: SODIUM CHLORIDE 0.9% 1,000 ML 100 ML IV ×2 (04:20→16:39)
[2025-03-07] MEDS: methylPREDNISolone succ 125 MG/2 ML VIAL 60 MG IV ×4 (06:00→17:42)
[2025-03-07] MEDS: LEVOTHYROXINE 88 MCG TABLET PO (06:00)
[2025-03-07 06:16] LABS: Add Manual Diff / Slide Review NO; Hematocrit 32.2 % (36-46); Hemoglobin 11.4 g/dL (12.0-16.0); Lymphocytes Absolute Auto 600 /uL (1100-4500); Mean Corpuscular HGB Conc 35.3 % (30-36); Mean Corpuscular Hemoglobin 33.4 PG (26-34); Mean Corpuscular Volume 94.5 fL (80-100); Platelet Count 269 X10^3/uL (150-400)
[2025-03-07 06:34] LABS: Blood Urea Nitrogen 16 mg/dL (7-17); Calcium 8.3 mg/dL (8.4-10.2); Carbon Dioxide 23 mmol/L (22-32); Chloride 98 mmol/L (98-107); Estimated Glomerular Filt Rate > 60 mL/min (>60); Glucose 134 mg/dL (70-99); HEMOLYSIS < 15 (0-50); Potassium 3.6 mmol/L (3.4-5.1); Sodium 129 mmol/L (137-145)
[2025-03-07] MEDS: ATORVASTATIN 20 MG TABLET PO (09:25)
[2025-03-07] MEDS: LOSARTAN 50 MG TABLET PO (09:26)
--- NOTE | 2025-03-07 11:03 | PT.IPTN ---
Current Diagnoses Pneumonia, unspecified organism (03/04/25) Physical Therapy Treatment Note M2 PT-IP Current Condition Start: 03/06/25 16:53 Freq: NEEDED Status: Active Protocol: Document 03/06/25 16:55 NW (Rec: 03/06/25 17:30 NW [id number]) Physical Therapy Current Condition Current Condition Evaluation Date 03/06/25 Treatment Diagnosis pneumonia, weakness, reduced activity tolerance Onset Date 03/04/25 M3 PT-IP Subjective Start: 03/06/25 16:53 Freq: NEEDED Status: Active Protocol: Document 03/07/25 12:14 NW (Rec: 03/07/25 12:23 NW [id number]) Subjective Physical Therapy Visit Type Type Treatment Note Visit Start Time 10:45 Visit Stop Time 11:03 Notes 18 min Physical Therapy Visit Comments Patient Comments Pt did not sleep the best last night. Is having second thoughts regarding going on cruise. Wants a short session secondary to fatigue. Patient Goals go home. M4 PT-IP Mobility and Gait Start: 03/06/25 16:53 Freq: NEEDED Status: Active Protocol: Document 03/07/25 12:14 NW (Rec: 03/07/25 12:23 NW [id number]) PT-Bed Mobility Assessment Supine to Sit Supine to Sit Independent Sit to Supine Sit to Supine Independent PT-Transfer Assessment Sit to and From Stand Sit to and from Independent Stand Equipment Transfer Assistive None Device Transfers Transfer Destination Bed,Chair Transfer Technique Stand Step Pivot Comments Mobility Comments Good power production and eccentric control. No loss of balance upon stance. Gait Assessment Gait Gait Assistance Standby Assistance Required: Distance (Feet) 150 Able to Maintain Yes Weight Bearing Status During Gait Assistive Devices Assistive Device None Comments Gait Comments Ambulated 100' + 50' with adequate velocity and helene . One standing rest break with 100' bout. Decreased signs of dyspnea and wheezing compared to previous session. Oxygen saturation > 93% after each ambulation. Stair Climbing Assessment Comments Stair Climbing DNT Comments PT-Balance Assessment Sitting Balance and Reactions Static Sitting Normal Balance Ability Dynamic Sitting Normal Balance Ability Standing Balance and Reactions Static Standing Normal Balance Ability Dynamic Standing Good Balance Ability Device Used none Functional Assessments Functional Tests 5 Times Sit to Stand 12 sec Other Functional Tests O2 saturation remains > 93% upon assessment today on RA Performed . M5 PT-IP Objective Assessments Start: 03/06/25 16:53 Freq: NEEDED Status: Active Protocol: Document 03/06/25 16:55 NW (Rec: 03/06/25 17:30 NW [id number]) Orientation Orientation/Cognition Level of Alertness Alert Orientation Name,Age,Birthday,Month,Date,Year,Day of Week,Place, Situation Safety Awareness Understands Safety Issues Comments Pt demonstrates fluctuation with activity tolerance awareness. Gross Range of Motion Lower Extremity ROM Assessment Within Functional Limits Strength Lower Extremity Strength Assessment Within Functional Limits Coordination Assessment Gross Coordination Gross Coordination WNL Sensation Assessment Sensation Gross Sensation WNL M6 PT-IP Treatment Start: 03/06/25 16:53 Freq: NEEDED Status: Active Protocol: Document 03/07/25 12:14 NW (Rec: 03/07/25 12:23 NW [id number]) Physical Therapy Treatment Other Treatments Other Treatment 9 STS without UE use throughout session Performed M7 PT-IP Assessment and Plan Start: 03/06/25 16:53 Freq: NEEDED Status: Active Protocol: Document 03/07/25 12:14 NW (Rec: 03/07/25 12:23 NW [id number]) PT Summary Assessment and Plan Potential Rehabilitation Good Potential Status of Condition Stable at Evaluation Summary Impairments Gait,Activity Tolerance Progress Towards Progressing Toward Goals Goals Assessment Summary Alem shows increased activity tolerance today with oxygen saturation remaining > 93% throughout session. Pt demonstrates good safety awareness in asking to taking standing or seated rest breaks when necessary. Did not perform stairs today as pt did not sleep well and wanted to perform a short session, no concern for pt to perform 2 steps to enter home upon discharge. Continuing to recommend home health upon discharge. Goals Gait Goal Standby Assistance Gait Distance 300 Other Goals Pt will navigate 2 stairs without use of handrail at stand by assist. Days to Meet Goals 2 Frequency of Treatment Frequency Of Once a Day Treatment Treatment Plan Physical Therapy Gait Training,Discharge Planning Treatment Plan Other Activity tolerance Recommendations and Next Treatment Focus Recommendations To Nursing Amount of Assist Independent Needed Discharge Recommendations PT Discharge Home Health Recommendations Transportation Needs Private Vehicle at Discharge - PT assist 1
--- NOTE | 2025-03-07 11:51 | P.PN_ITS ---
Subjective Subjective Interval history: Interval history: This is a 74-year-old female with several months of persistent and oscillating cough as well as wheezing. She was no history of pulmonary disease including asthma, or COPD. No history of tobacco use. She was had progressive wheezing. She recently returned from a trip to [place] where she was traveling around the country for 3 weeks. She entered that trip with a cough and has essentially been ill the entire trip with persistent coughing and wheezing. She was started on azithromycin at the beginning that trip and recently was started on Augmentin. She was not been started on or treated with steroids to this point. She has been using bronchodilators at home and these do help to a degree. No fevers, or chills. No anorexia. 03/05: She mentions that she has been feeling foggy and stupid? for the last 4 months. She mentions the trip to [place]. She has not been to see a associate music professor yet. The magnesium level has risen from 1.3 up to 2.0. The sodium level is up to 122. The blood pressure is 177/92. She has been unable to get started on her PT and OT due to her dyspnea so far. 03/06: She seems to be doing better and will be starting PT/OT. Sodium level continues to rise, now at 124. White blood count of 15.7 without any other signs of an acute infection/worsening? Magnesium level 1.8. Blood pressure running high. Losartan being resumed today. 03/07: Improving. S: Breathing improving, still anxious. Some RUQ abdomen pain. Na 129. O: T 97.2?, BP 156/67, pulse 110, respiration 18, SpO2 96% room air. NAD, alert and oriented, fluent speech, calmer today. Normocephalic skull Neck supple, midline trachea, no adenopathy. Lungs with decreased wheezing wheezing, normal rate and effort. Heart regular, no murmur gallop or rub. Extremities are free of edema. Skin is free of rash or lesions. Joints are not swollen or deformed. Judgment appears to be normal. IMAGING: CXR: No pulmonary embolus. Chest CTA: No acute cardiopulmonary abnormality is seen. A/P: 1. Possible pneumonia, improved. 2. Severe reactive airways secondary to infection, improved. 3. Hypovolemic hyponatremia, improving. 4. Hypothyroidism, stable. 5. HLD, stable. 6. Hyponatremia 7. Hypomagnesemia 8. HTN PLAN: -Levaquin (PCN allergy) to continue. -methylprednisolone 60 mg IV q.6 hours. to continue. -normal saline at 100 an hour, monitor sodium. Likely soute deficiency from being ill. -Mg supplemented and normalized -bronchodilators Q 2 hours as needed, albuterol. -Losartan -PT/OT Home tomorrow. Full resuscitation. is proxy decision maker. Exam Vital Signs (past 8 hours): - 03/07/25 05:00 03/07/25 07:45 03/07/25 09:26 Temperature 96.5 F L 97.2 F L Pulse Rate 96 H 107 H 96 H Respiratory Rate 18 17 Blood Pressure 156/67 H 170/81 H 156/67 H Pulse Oximetry 97 95 Oxygen Flow Rate 3.5 0 03/07/25 10:02 Temperature Pulse Rate 110 H Respiratory Rate 18 Blood Pressure Pulse Oximetry 96 Oxygen Flow Rate Fraction of Inspired Oxygen 21 SaO2/FiO2 Ratio 447 Oxygen Delivery Method Room Air Oxygen Flow Rate 0 Objective Labs 03/07/25 05:50 03/07/25 05:50 Labs: Laboratory Results - last 24 hr 03/07/25 05:50 WBC 11.0 RBC 3.41 L Hgb 11.4 L Hct 32.2 L MCV 94.5 MCH 33.4 MCHC 35.3 RDW 12.9 Plt Count 269 Neut % (Auto) 87.1 H Lymph % (Auto) 5.2 L [place] % (Auto) 7.6 Eos % (Auto) 0.0 L Baso % (Auto) 0.1 Neut # (Auto) 9600 H Lymph # (Auto) 600 L [place] # (Auto) 800 Eos # (Auto) 0 Baso # (Auto) 0 Sodium 129 L Potassium 3.6 Chloride 98 Carbon Dioxide 23 BUN 16 Creatinine 0.74 Estimated GFR > 60 BUN/Creatinine Ratio 21.6 Glucose 134 H Calcium 8.3 L PFSH Social History household members: significant other Smoking Status: Former smoker Assessment & Plan Time-Based Coding :: [TOTAL MINUTES] spent with patient and on the chart (including review of chart, obtaining history, exam, reviewing outside data, placing orders, documenting exam and treatment plan, and counseling patient) on [DATE].
[2025-03-07] MEDS: GABAPENTIN 300 MG CAPSULE PO (20:38)
[2025-03-07] MEDS: SENNOSIDES 8.6 MG TABLET PO (20:38)
[2025-03-08] MEDS: SODIUM CHLORIDE 0.9% 1,000 ML 100 ML IV ×2 (02:40→15:03)
[2025-03-08 05:10] LABS: Add Manual Diff / Slide Review NO; Hematocrit 32.9 % (36-46); Hemoglobin 11.6 g/dL (12.0-16.0); Lymphocytes Absolute Auto 400 /uL (1100-4500); Mean Corpuscular HGB Conc 35.1 % (30-36); Mean Corpuscular Hemoglobin 33.4 PG (26-34); Mean Corpuscular Volume 95.1 fL (80-100); Platelet Count 279 X10^3/uL (150-400)
[2025-03-08 05:22] LABS: Blood Urea Nitrogen 17 mg/dL (7-17); Calcium 8.4 mg/dL (8.4-10.2); Carbon Dioxide 23 mmol/L (22-32); Chloride 102 mmol/L (98-107); Estimated Glomerular Filt Rate > 60 mL/min (>60); Glucose 136 mg/dL (70-99); HEMOLYSIS < 15 (0-50); Magnesium 1.9 mg/dL (1.6-2.3); Potassium 3.3 mmol/L (3.4-5.1); Sodium 131 mmol/L (137-145)
[2025-03-08] MEDS: methylPREDNISolone succ 125 MG/2 ML VIAL 60 MG IV ×3 (07:00→13:09)
[2025-03-08] MEDS: LEVOTHYROXINE 88 MCG TABLET PO (07:00)
[2025-03-08 09:14] VITALS: BP 164/72; PULSE 103
[2025-03-08] MEDS: LOSARTAN 50 MG TABLET PO (09:14)
[2025-03-08] MEDS: ATORVASTATIN 20 MG TABLET PO (09:14)
--- NOTE | 2025-03-08 09:34 | DI.RAD.S_ITS ---
PROCEDURE: XR CHEST 2V INDICATIONS: dyspnea TECHNIQUE: 2 views of the chest were acquired. COMPARISON: [facility], CT, CT ANGIO CHEST PE PROTOCOL, 03/04/2025, 13:33. [facility], CR, XR CHEST 1V, 03/04/2025, 12:35. FINDINGS: Surgical changes and devices: None. Lungs and pleura: Lungs are abnormal with mild worsening of previously documented pneumonia pattern seen by CT scanning 03/04/25. No subpulmonic pleural effusion is found.. No pleural effusions or pneumothorax. Mediastinum: Mediastinal contours are normal. Heart size is normal. Bones and chest wall: No suspicious bony abnormalities. Soft tissues appear unremarkable. IMPRESSION: Worsening bibasilar pneumonia with reference to CT scanning approximately 4 days ago. No effusion associated, however. Dictated by: Justin Fisher M.D. on 03/08/2025 at 9:57 Approved by: Justin Fisher M.D. on 03/08/2025 at 9:58
[2025-03-08 09:36] VITALS: BP 164/72; PULSE 103; RESP 19; TEMP 36; O2SAT 98
[2025-03-08] MEDS: ALBUTEROL 2.5 MG/3 ML NEB (ADULT) INH ×2 (10:26→14:22)
--- NOTE | 2025-03-08 13:22 | CM.DPC ---
DCP Cont: Per MD, pt making progress and weaned to room air but quite anxious to d/c home and had additional chest xray today which shows worsening pneumonia. Per PT, pt has improved with activity tolerance and sats stable and able to ambulate 150 ft and recommending home and would not qualify for at this time as too mobile to be homebound. SW met bedside with pt and explained role and pt confirms she is feeling better but wants to make sure her pneumonia and SOB is more resolved prior to d/c as she states she had multiple episodes of being unable to catch her breath and is very anxious about SOB. Pt confirms that she lives in [place] with [employer] Other for the past 7 years ( no longer lives in [place] and changed her address in EMR) and her PCP is Sara Fritz at [facility]. Pt confirms preference is home via [employer] POV and does not anticipate any further needs once stable to discharge. JADYN Ramos
--- NOTE | 2025-03-08 15:14 | P.DS_ITS ---
History of Present Illness History of Present Illness Chief complaint: sob Narrative: 74-year-old female with several months of persistent and oscillating cough as well as wheezing. She was no history of pulmonary disease including asthma, or COPD. No history of tobacco use. She was had progressive wheezing. She recently returned from a trip to [place] where she was traveling around the country for 3 weeks. She entered that trip with a cough and has essentially been ill the entire trip with persistent coughing and wheezing. She was started azithromycin at the beginning that trip and recently was started on Augmentin. She was not been started on or treated with steroids to this point. She has been using bronchodilators at home and these do help to a degree. No fevers, or chills. No anorexia. ROS: All else reviewed and otherwise unremarkable except as noted in the history and physical. O: VSS NAD, alert and oriented, fluent speech, calm. Normocephalic skull, EOMI, anicteric sclera, symmetric pupils. Oropharynx unremarkable, no droop. Neck supple, midline trachea, no adenopathy. Lungs with diffuse inspiratory and expiratory wheezing, normal rate and effort. Heart regular, no murmur gallop or rub. Abdomen is soft, non distended and non tender. Extremities are free of edema. Skin is free of rash or lesions. Joints are not swollen or deformed. Judgment appears to be normal. IMAGING: CXR: No pulmonary embolus. Chest CTA: No acute cardiopulmonary abnormality is seen. A/P: 1. Possible pneumonia, improved. 2. Severe reactive airways secondary to infection, improved. 3. Hypovolemic hyponatremia, improved. 4. Hypothyroidism, stable. 5. HLD, stable. PLAN: -Levaquin given her penicillin allergy. -methylprednisolone trial at 60 mg IV q.6 hours. Hospital course: She was treated with steroids, IV antibiotics, and bronchodilators and improved over the next 2 days. Her wheezing dramatically improved. Imaging was reviewed with Pulmonary, . He recommended outpatient follow up, as well as a slow taper off steroids. I discussed this with the patient, she however was done with steroids and declined anymore. She also did agree with following up with Pulmonary Medicine. Her sodium did improve with saline. In the day of discharge her imaging was relatively stable. Her breathing is much improved and she would essentially resolved wheezing. [N], the patient has documentation of a left ventricle ejection fracture less than or equal to 40%, or moderately or severely reduced left ventricle systolic function. [N], the patient has a history of heart transplant or left ventricular assist device (LVAD). [N], the patient was prescribed an JEFF inhibitor at discharge or is already being taken. The patient was not prescribed an JEFF-inhibitor because of the following exception: NA. [N], the patient was prescribed Metoprolol succinate, bisoprolol, or carvedilol at discharge. The patient was not prescribed Metoprolol succinate, bisoprolol, or carvedilol at discharge because of the following exception: NA. Discharge Providers Provider Date of admission: 03/04/25 16:10 Discharge Date: 03/08/25 Primary care physician: Sara Fritz MD Consults: 03/06/25 10:55 Consult to Occupational Therapy Evaluate & Treat Comment: Physician Instructions: Evaluate and treat Consult to Physical Therapy Evaluate & Treat Comment: Physician Instructions: Evaluate and Treat Discharge provider: Murtaza Palencia MD Summary Hospital Course Discharge Diagnosis: 1. Possible pneumonia, improved. 2. Severe reactive airways secondary to infection, improved. 3. Hypovolemic hyponatremia, improved. Hospital Course: Close PCP follow up and referral to Pulmonary was sent electronically. Status at Discharge Cognitive/behavioral status at discharge: oriented Functional status at discharge: independent ambulation Overall status at discharge: patient is back to baseline Time Spent with Patient Time spent: Greater than 30 minutes Exam Vital Signs (past 8 hours): - 03/08/25 09:14 03/08/25 09:36 Temperature 96.8 F L Pulse Rate 103 H 103 H Respiratory Rate 19 Blood Pressure 164/72 H 164/72 H Pulse Oximetry 98 Oxygen Flow Rate 0 Fraction of Inspired Oxygen 21 SaO2/FiO2 Ratio 447 Oxygen Delivery Method Room Air Oxygen Flow Rate 0 Narrative Exam Narrative: NAD, alert and oriented. Fluent speech. Lungs are clear, normal rate and effort. Very occasional scattered wheezing. Heart is regular, no murmur gallop or rub. Abdomen is soft, non distended. Extremities are free of edema. Objective Imaging Multiple studies: : Radiologist's impression: CXR: No pulmonary embolus. Chest CTA: No acute cardiopulmonary abnormality is seen. Repeat CXR: Worsening bibasilar pneumonia with reference to CT scanning approximately 4 days ago. No effusion associated, however. To my read, this is not dramatically worse. Pulmonary reviewed films as well. Labs 03/08/25 04:45 03/08/25 04:45 Labs: Laboratory Results - last 24 hr 03/08/25 04:45 WBC 9.3 RBC 3.46 L Hgb 11.6 L Hct 32.9 L MCV 95.1 MCH 33.4 MCHC 35.1 RDW 13.1 Plt Count 279 Neut % (Auto) 89.3 H Lymph % (Auto) 4.[address] [facility] % (Auto) 6.4 Eos % (Auto) 0.0 L Baso % (Auto) 0.1 Neut # (Auto) 8300 H Lymph # (Auto) [address] [facility] # (Auto) 600 Eos # (Auto) 0 Baso # (Auto) 0 Sodium 131 L Potassium 3.3 L Chloride 102 Carbon Dioxide 23 BUN 17 Creatinine 0.76 Estimated GFR > 60 BUN/Creatinine Ratio 22.4 H Glucose 136 H Calcium 8.4 Magnesium 1.9 PFSH Social History household members: significant other Smoking Status: Former smoker Discharge Assessment & Plan Assessment and Plan Assessment: 1. Possible pneumonia, improved. 2. Severe reactive airways secondary to infection, improved. 3. Hypovolemic hyponatremia, improved. Plan of Treatment: Discharge home, stop steroids per her request. Close follow up with PCP and referred to Pulmonary Medicine . Discharge Plan Discharge Plan Patient Disposition: Home Provider Discharge Comment: Stable for discharge home. Outpatient follow up with pulmonary clinic is recommended. Referral sent. Discharge orders & Medications Prescriptions: Continued Otezla 30 mg tablet 30 mg PO DAILY duloxetine 60 mg capsule,delayed release(DR/EC) 60 mg PO Q3H gabapentin 300 mg capsule 300 mg PO BEDTIME levothyroxine 88 mcg tablet 88 mcg PO DAILY losartan [Cozaar] 50 mg tablet 50 mg PO DAILY rosuvastatin 10 mg tablet 10 mg PO DAILY Follow up/Referrals: Sara Fritz MD [Primary Care Provider, Family Practice] Gregorio Munoz MD [Physician, Pulmonology] Discharge Health Status Multidrug resistant organism: No MDRO Diet/Activity/Treatments Diet: Regular Visit Report/Discharge Packet Instructions: DI for Asthma -- Adult Stand Alone Forms: Patient Portal/API Discharge Data Primary Care Provider: Sara Fritz
[2025-03-08] MEDS: INFLUENZA HD VACCINE 0.5 ML SYRINGE IM (16:29)
--- NOTE | 2025-03-08 16:47 | PC.NURSE ---
Pt is dressed and ready for discharge home with Spouse. IV has been removed. Flu shot given as requested. Home meds from locked drawer returned to Pt. Went over d/c instructions with Pt and Spouse-discussed d/c meds, time of last dose, reviewed stroke education. Reminded Pt to drink plenty of fluids to prevent constipation or dehydration. Encouraged Pt to take it slow and easy and rest as needed. Pt denied further questions and was taken out via w/c by RN to POV with Spouse and all belongings.
== END 2025-03-08 16:50 | disposition home or self-care (01) | DRG 194 ==
LOC: ED 16:07 → AC 16:11
PROVIDERS: Family Medicine; Internal Medicine; Admitting Provider Hospitalist; Emergency Provider Emergency Medicine; PCP Family Medicine; Referring Provider Emergency Medicine; Visit Provider Hospitalist
DX: J18.9 Pneumonia, unspecified organism (principal); E87.1 Hypo-osmolality and hyponatremia; E87.3 Alkalosis; J45.909 Unspecified asthma, uncomplicated; E83.42 Hypomagnesemia; E78.5 Hyperlipidemia, unspecified; I10 Essential (primary) hypertension; R00.0 Tachycardia, unspecified; R09.02 Hypoxemia; E03.9 Hypothyroidism, unspecified; Z88.0 Allergy status to penicillin; Z87.891 Personal history of nicotine dependence; Z79.890 Hormone replacement therapy
CPT/HCPCS: 36415; 36600; 71045; 71046; 71275; 80048; 80053; 82805; 83605; 83735; 83880; 84145; 84484; 85025; 85379; 85610; 85730; 87040; 87637; 90471; 90662; 93005; 93010; 94640; 94667; 94760; 94762; 96365; 96366; 96368; 96375; 97161; 97530; 99284; 99285; J1100; J1956; J2919; J3475; J7030; J7613; Q9967